=== PATIENT | female | born 1965 | race Caucasian/White ===

== ENCOUNTER 2017-03-19 01:33 | Emergency (ER) | payer OTHER ==
[~2017-03-19] VITALS: Ht 167.6 cm; Wt 78.1 kg
[2017-03-19 01:36] VITALS: Ht 167.6 cm; Wt 78.1 kg
[2017-03-19 02:28] LABS: URINE BLOOD (Dip) POC Trace-intact (NEGATIVE)
[2017-03-19] MEDS ORDERED: NAPR-260 PO (02:34)
[2017-03-19] MEDS ORDERED: CYCL-319 PO (02:34)
--- NOTE | 2017-03-19 03:33 | ERD ---
ER Documentation Chief Complaint Chief Complaint low back paim x 2 days, denies injury HPI This patient is a 52-year-old female presented to the emergency department with complaints of low back pain and pelvic pressure in mild warm sensation on urination ongoing intermittently for the past 3 days. Symptoms are mild in severity. She denies chills, fever, or other symptoms at this time. No loss of bowel or bladder function reported. Patient is ambulating well. ROS All systems reviewed and are negative except as per history of present illness. Medications Home Meds Active Scripts Naproxen* (Naprosyn*) 500 Mg Tablet, 500 MG PO BID Y for PAIN AND/OR INFLAMMATION, #30 TAB Prov:FIDEL VALLADARES PA-C 03/19/17 Cyclobenzaprine Hcl* (Cyclobenzaprine Hcl*) 10 Mg Tablet, 10 MG PO TID, #15 TAB Prov:FIDEL VALLADARES PA-C 03/19/17 Allergies Allergies: Coded Allergies: No Known Allergies (Verified Allergy, Mild, 11/11/13) PMhx/Soc Medical and Surgical Hx: pt denies Surgical Hx History of Surgery: Yes (C SECTION) Anesthesia Reaction: No Hx Neurological Disorder: No Hx Respiratory Disorders: No Hx Cardiac Disorders: Yes (htn) Hx Psychiatric Problems: No Hx Miscellaneous Medical Probl: No Hx Alcohol Use: No Hx Substance Use: No Hx Tobacco Use: No Smoking Status: Never smoker Physical Exam Vitals Vital Signs Date Time Temp Pulse Resp B/P Pulse Ox O2 Delivery O2 Flow Rate FiO2 03/19/17 01:36 98.1 104 20 159/81 99 Physical Exam Const: Patient is well-appearing female in no acute distress. Head: Atraumatic Eyes: Normal Conjunctiva ENT: Normal External Ears, Nose and Mouth. Neck: Full range of motion..~ No meningismus. Resp: Clear to auscultation bilaterally Cardio: Regular rate and rhythm, no murmurs Abd: Soft, non tender, non distended. Normal bowel sounds Skin: No petechiae or rashes Back: No midline or flank tenderness. No CVA tenderness Ext: No cyanosis, or edema Neur: Awake and alert Psych: Normal Mood and Affect Results 24 hrs Laboratory Tests Test 03/19/17 02:27 Bedside Urine pH (LAB) 5.5 Bedside Urine Protein (LAB) Negative Bedside Urine Glucose (UA) Negative Bedside Urine Ketones (LAB) Negative Bedside Urine Blood Trace-intact Bedside Urine Nitrite (LAB) Negative Bedside Urine Leukocyte Esterase (L Negative Procedures/MDM 52-year-old female presenting to the emergency department with complaints of back pain and mild warm sensation on urination. The patient is afebrile. All other vital signs are stable except for mildly elevated blood pressure 159/81. Urine dip is negative for signs of infection, hematuria, proteinuria, or other acute findings. Pain is likely musculoskeletal. Low suspicion for cauda equina. Low suspicion for cord compression or other emergencies. The patient is stable and appropriate for outpatient management with a prescription for naproxen and Flexeril. No evidence of life-threatening pathology at time of discharge. Pt/family in agreement with discharge plan/diagnosis. Pt/family advised to return immediately with any new or worsening symptoms. Follow-up with primary care physician within the next 1-2 days. Patient's blood pressure was elevated (>120/80) but appears stable without evidence of hypertension emergency or urgency. The patient was counseled about the risks of hypertension and urged to pursue outpatient monitoring and therapy within a week with their primary care physician. Departure Diagnosis: Primary Impression: Back pain Back pain location: low back pain Chronicity: acute Back pain laterality: unspecified Sciatica presence: unspecified whether sciatica present Qualified Code: M54.5 - Acute low back pain, unspecified back pain laterality, with sciatica presence unspecified Condition: Fair Patient Instructions: Back Pain (Acute Or Chronic) Referrals: [facility] YOU HAVE RECEIVED A MEDICAL SCREENING EXAM AND THE RESULTS INDICATE THAT YOU DO NOT HAVE A CONDITION THAT REQUIRES URGENT TREATMENT IN THE EMERGENCY DEPARTMENT. FURTHER EVALUATION AND TREATMENT OF YOUR CONDITION CAN WAIT UNTIL YOU ARE SEEN IN YOUR DOCTORS OFFICE WITHIN THE NEXT 1-2 DAYS. IT IS YOUR RESPONSIBILITY TO MAKE AN APPOINTMENT FOR [facility]ARE. IF YOU HAVE A PRIMARY DOCTOR --you should call your primary doctor and schedule an appointment IF YOU DO NOT HAVE A PRIMARY DOCTOR YOU CAN CALL OUR PHYSICIAN REFERRAL HOTLINE AT IF YOU CAN NOT AFFORD TO SEE A PHYSICIAN YOU CAN CHOSE FROM THE FOLLOWING [facility] [id number] [facility]. [facility] [id number] [facility]. [facility] [address] [facility]. [facility] [address] [facility] [address] [facility]. [facility] [address] Additional Instructions: Call your primary care doctor TOMORROW for an appointment during the next 1-2 days.See the doctor sooner or return here if your condition worsens before your appointment time. FIDEL VALLADARES PA-C Mar 19, 2017 03:33
== END 2017-03-19 02:41 | disposition home or self-care (01) ==
LOC: FTE 01:33
DX: M54.5 Low back pain (principal); I10 Essential (primary) hypertension; R10.2 Pelvic and perineal pain
CPT/HCPCS: 81003; 99283

== ENCOUNTER 2018-08-10 19:17 | Emergency (ER) | payer OTHER ==
[~2018-08-10] VITALS: Ht 157.5 cm; Wt 76.3 kg
[~2018-08-10 19:17] MED LIST: CYCL10TA7 PO; NAPR-985 PO
[2018-08-10 19:33] VITALS: Ht 157.5 cm; Wt 76.3 kg
[2018-08-10] MEDS ORDERED: AMLO2.5T78 PO (21:08)
--- NOTE | 2018-08-10 23:14 | ERD ---
ER Documentation Chief Complaint Chief Complaint C/o RQ abd pain today. denies n/v/d HPI 53-year-old female with no significant past medical history presenting with right-sided abdominal pain that started today. The pain is constant, aching, nonradiating. She occasionally feels some pain in her left abdomen as well. She states that for the past few days, her stools have been very thin and in small amounts. No hematochezia or melena. No nausea or vomiting. No fever, chills, dysuria. The pain is currently a 6 out of 10. No alleviating or exacerbating factors. ROS All systems reviewed and are negative except as per history of present illness. Medications Home Meds Reported Medications Amlodipine Besylate* (Amlodipine Besylate*) 2.5 Mg Tablet, 2.5 MG PO DAILY, #30 TAB 08/10/18 Discontinued Scripts Naproxen* (Naprosyn*) 500 Mg Tablet, 500 MG PO BID PRN for PAIN AND/OR INFLAMMATION, #30 TAB Prov:FIDEL VALLADARES PA-C 03/19/17 Cyclobenzaprine Hcl* (Cyclobenzaprine Hcl*) 10 Mg Tablet, 10 MG PO TID, #15 TAB Prov:FIDEL VALLADARES PA-C 03/19/17 Allergies Allergies: Coded Allergies: No Known Allergies (Verified Allergy, Mild, 08/10/18) PMhx/Soc History of Surgery: Yes (Tubal ligation) Anesthesia Reaction: No Hx Neurological Disorder: No Hx Respiratory Disorders: No Hx Cardiac Disorders: Yes (HTN) Hx Psychiatric Problems: No Hx Miscellaneous Medical Probl: No Hx Alcohol Use: No Hx Substance Use: No Hx Tobacco Use: No Smoking Status: Never smoker FmHx Family History: No diabetes Physical Exam Vitals Vital Signs Date Temp Pulse Resp B/P (MAP) Pulse Ox O2 O2 Flow FiO2 Time Delivery Rate 08/10/18 73 18 123/78 98 Room Air 23:39 (93) 08/10/18 73 18 125/73 100 Room Air 22:20 (90) 08/10/18 97.6 85 20 140/79 97 19:33 (99) Physical Exam Const: No acute distress Head: Atraumatic Eyes: Normal Conjunctiva ENT: Normal External Ears, Nose and Mouth. Neck: Full range of motion. No meningismus. Resp: Clear to auscultation bilaterally Cardio: Regular rate and rhythm, no murmurs Abd: Soft, non tender, non distended. No masses. No McBurney's point tenderness. Negative Geller sign. No rebound or guarding. Normal bowel sounds Skin: No petechiae or rashes Back: No midline or flank tenderness Ext: No cyanosis, or edema Neur: Awake and alert Psych: Normal Mood and Affect Result Diagram: 08/10/18211908/10/182118 Results 24 hrs Laboratory Tests Test 08/10/18 21:19 08/10/18 21:20 Urine Color YELLOW Urine Clarity CLEAR Urine pH 5.0 Urine Specific [place] 1.023 Urine Ketones NEGATIVE mg/dL Urine Nitrite NEGATIVE mg/dL Urine Bilirubin NEGATIVE mg/dL Urine Urobilinogen NEGATIVE mg/dL Urine Leukocyte Esterase NEGATIVE [place]/ul Urine Microscopic RBC 5 /HPF Urine Microscopic WBC 1 /HPF Urine Hemoglobin 2+ mg/dL Urine Glucose NEGATIVE mg/dL Urine Total Protein NEGATIVE mg/dl Sodium Level 141 mmol/L Potassium Level 4.2 mmol/L Chloride Level 109 mmol/L Carbon Dioxide Level 25 mmol/L Anion Gap 7 Blood Urea Nitrogen 15 mg/dl Creatinine 0.54 mg/dl Est Glomerular Filtrat Rate mL/min > 60 mL/min Glucose Level 95 mg/dl Calcium Level 9.3 mg/dl Total Bilirubin 0.2 mg/dl Direct Bilirubin 0.00 mg/dl Indirect Bilirubin 0.2 mg/dl Aspartate Amino Transf (AST/SGOT) 20 IU/L Alanine Aminotransferase (ALT/SGPT) 21 IU/L Alkaline Phosphatase 147 IU/L Total Protein 7.8 g/dl Albumin 4.0 g/dl Globulin 3.80 g/dl Albumin/Globulin Ratio 1.05 Lipase 59 U/L White Blood Count 11.9 10^3/ul Red Blood Count 4.79 10^6/ul Hemoglobin 13.9 g/dl Hematocrit 42.2 % Mean Corpuscular Volume 88.1 fl Mean Corpuscular Hemoglobin 29.0 pg Mean Corpuscular Hemoglobin Concent 32.9 g/dl Red Cell Distribution Width 13.4 % Platelet Count 372 10^3/UL Mean Platelet Volume 8.6 fl Immature Granulocytes % 0.300 % Neutrophils % 64.5 % Lymphocytes % 26.6 % Monocytes % 6.7 % Eosinophils % 1.6 % Basophils % 0.3 % Nucleated Red Blood Cells % 0.0 /100WBC Immature Granulocytes # 0.030 10^3/ul Neutrophils # 7.7 10^3/ul Lymphocytes # 3.2 10^3/ul Monocytes # 0.8 10^3/ul Eosinophils # 0.2 10^3/ul Basophils # 0.0 10^3/ul Nucleated Red Blood Cells # 0.0 10^3/ul Current Medications Medications Dose Sig/Herb Start Time Status Last (Trade) Ordered Route PRN Stop Time Admin Dose Reason Admin Magnesium 45 ml ONCE ONCE 08/10/18 DC 08/10/18 Hydroxide PO 23:30 23:33 (Milk Of Mag) 08/10/18 23:31 Procedures/MDM EMERGENT LABS AND DIAGNOSTIC STUDIES: Lab Results above were reviewed and interpreted by me. CBC: no anemia or evidence of infection CMP: No evidence of clinically significant electrolyte abnormality, acidosis, renal failure, hypoglycemia, liver disease, or biliary obstruction Lipase is within normal limits with no evidence of pancreatitis UA 2+ hemoglobin, but patient on menses 12-lead EKG was interpreted by Dai Morris MD: Normal Sinus Rhythm Normal axis Normal intervals No acute ST or T wave changes suggestive of acute ischemia or STEMI. Radiology Results as interpreted by Radiology below were reviewed by Ifeanyi Morris MD: X-ray KUB shows small amount of retained stool in the colon Initial Nursing notes reviewed. Previous Medical Records requested via the Electronic Health Record. EMERGENCY DEPARTMENT COURSE / MEDICAL DECISION MAKING: Patient is presenting with right-sided abdominal pain. Differential includes but is not limited to cholecystitis, symptomatic cholelithiasis, hepatitis, colitis, diverticulitis, bowel obstruction, fecal impaction, appendicitis. She is afebrile with unremarkable vital signs. Her exam was not concerning for acute surgical abdomen. Labs did not show any significant abnormalities. X-ray did show evidence of retained stool. Given the clinical picture and my exam, I am more concerned about possible constipation causing her symptoms. I discussed this with the patient and told her that I have a very low suspicion for acute surgical abdomen. At this time I would not recommend a CT of the abdomen or ultrasound. I recommended treatment with milk of magnesia at home for constipation. Return precautions were given. If there is worsening of her symptoms within the next 8 hours, she was advised to return to the ER immediately for reevaluation. Patient feels comfortable with the discharge plan. Patient's blood pressure was elevated (>120/80) but appears stable without evidence of hypertensive emergency or urgency. The patient was counseled about the risks of hypertension and urged to pursue outpatient monitoring and therapy within a week with their primary care physician. Departure Diagnosis: Primary Impression: Abdominal pain Abdominal location: unspecified location Qualified Codes: R10.9 - Unspecified abdominal pain Additional Impression: Constipation Constipation type: unspecified constipation type Qualified Codes: K59.00 - Constipation, unspecified Condition: Stable Patient Instructions: Abdominal Pain, Constipation (Adult) Referrals: DOCTOR,NOT ON STAFF (PCP) Additional Instructions: Compra Milk of Magnesia y julia cada noche. Si selvin sintomas empeoran, regresa a la marcus de emergencias MOISÉS MORRIS MD Aug 10, 2018 23:13
[2018-08-10] MEDS ORDERED: MAGNESIUM HYDROXIDE 30ML CUP PO ONE (23:30)
[2018-08-10 23:39] VITALS: BP 123/78; PULSE 73; RESP 18
== END 2018-08-10 23:40 | disposition home or self-care (01) ==
LOC: E/R 19:17
DX: K59.00 Constipation, unspecified (principal)
CPT/HCPCS: 74018; 80053; 81001; 83690; 85025